=== PATIENT | female | born 1960 | race Caucasian/White ===

== ENCOUNTER → 2017-01-03 | Outpatient (CLI) | payer MEDICAID ==
[~2017-01-03] MED LIST: ASPIRIN 81MG TA81 MG PO; GABAPENTIN100 M1 PO; KEFLEX 500MG.500 MG PO; LORTAB 500 MG-71 TAB PO; SULFAMETHOXAZOL1 TA6 PO
--- NOTE | 2017-01-10 09:32 | RADIOLOGY REPORT PS360 ---
US ABD(COMPLETE-MULTI ORGANS HISTORY: RUQ PAIN,HEPATITIS,C,THROMBOCYTOPENIA Patient Age: 56 years: Female Ordering Physician: ZOHRA KIRBY TECHNIQUE: Ultrasound abdomen complete COMPARISON :No prior studies FINDINGS Pancreas. Head body and tail Unremarkable. Liver. Upper normal echogenicity slightly coarse pattern could reflect above history. No focal lesions or mass is evident. Portal vein normal diameter and flow direction. Common duct normal diameter 3 mm at hilum of liver. No intrahepatic biliary ductal dilatation Gallbladder. Probably small stones in the fundus of gallbladder. Borderline to mild wall thickening.-Generous size gallbladder 7.5 cm length with wall measuring up to 4.5 mm in some areas Aorta normal caliber. No aneurysm. Spleen appears normal size measuring up to 10 seem in length maximally. . Kidneys appear normal bilateral. No hydronephrosis nor mass Left kidney 11.3 cm in length X 5 cm. Right kidney 10 cm in length x5.8 x 3.5 cm. IMPRESSION: Gallbladder. Probable/suspect small stones towards fundus of gallbladder. Borderline to mild gallbladder wall thickening Liver. Slightly coarse architecture, upper normal echogenicity. Mild fatty changes. No focal lesions Kidneys & pancreas & spleen unremarkable.
== END ==
LOC: RAD 08:20
DX: R10.11 Right upper quadrant pain (principal); D69.6 Thrombocytopenia, unspecified; B19.20 Unspecified viral hepatitis C without hepatic coma

== ENCOUNTER 2017-01-05 10:12 | Day surgery (SDC) | payer MEDICAID ==
--- NOTE | 2017-01-05 12:06 | Operative Note ---
Upper GI Endoscopy Procedure date: 01/05/17 Date of : 60 Procedure:Upper GI Endoscopy with dilation and biopsy Indications: dysphagia Performing Provider: Alphonso Floyd Referring Provider: Ben Sanabria Sedation: Midazolam 11mg, fentanyl 200 mg Procedure: Prior to the procedure, a history and physical exam was performed, and patients medications and allergies were reviewed. The risks and benefits of the procedure and the sedation options and risks were discussed with the patient. All questions were answered and informed consent was obtained. The patient was brought to the procedure room. Patient identification and proposed procedure were verified by the physician and the nurse. The patient was placed in a left lateral decubitus position and the scope was passed under direct vision. Throughout the procedure, the patient's blood pressure, pulse, and oxygen saturations were monitored continuously. The endoscope was introduced through the mouth, and advanced to the second part of duodenum. A 20 Fr TTS dilator was inserted and inflated for 60sec. The upper GI endoscopy was accomplished without difficulty. The patient tolerated the procedure well. Findings: 1) Hitala hernia 4cm 2) Schatzki's ring - mild non-obstructing - dialted to 20Fr w/ TTS dilator 3) Tongues of erythematous mucosal at GEJ for 2 cm - biopsied to r/o Floyd's 4) Apearance of circumferential rings in mid-esophagus - biiosied to r/o EoE. 5) Remainder WNL. Immediate complications: None EBL (ml): 5 Impression: 1) Hiatal hernie - large - may be cause of dysphagia 2) mild Schatzki's ring at GEJ - dilated 3) Tongues of erythematous mucosal at GEJ for 2 cm - biopsied to r/o Floyd's 4) Apearance of circumferential rings in mid-esophagus - biiosied to r/o EoE. Recommendations: 1) Cont PPI 2) f/u pathology at 1202
[2017-01-05 14:22] VITALS: BP 115/66
== END 2017-01-05 14:10 | disposition home or self-care (01) ==
LOC: SDC 10:12
PROVIDERS: Internal Medicine Gastroenterology
PROC: 0D758ZZ Dilation of Esophagus, Via Natural or Artificial Opening Endoscopic (ICD-10-PCS; 2017-01-05)
PROC: 0DB58ZX Excision of Esophagus, Via Natural or Artificial Opening Endoscopic, Diagnostic (ICD-10-PCS; principal; 2017-01-05 12:00)
DX: K22.2 Esophageal obstruction (principal); K44.9 Diaphragmatic hernia without obstruction or gangrene
CPT/HCPCS: C1726

== ENCOUNTER → 2017-04-29 | Outpatient (CLI) | payer MEDICAID ==
--- NOTE | 2017-05-02 09:38 | RADIOLOGY REPORT PS360 ---
DIG MAMM-SCREEN [facility] W/CAD ORDERING PHYSICIAN : SINTIA HODGES PATIENT AGE: 56 years GENDER: Female COMPARISON: March 2000 05 January 2015. Outside Film screen mammogram arch July 2012 HISTORY:56-year-old with no hormones. No new complaints. Noncontributory family history TECHNIQUE: Std CC & MLO images were obtained. R2 CAD reviewed. FINDINGS: Moderate breast density with no dominant mass nor suspicious calcifications either breast. RIGHT BREAST: No areas of concern LEFT BREAST:. No new areas of concern The ridge of tissue at the deep left breast on cc view is similar to previous studies IMPRESSION: Stable bilateral mammogram Follow-up one year recommended BI-RADS CATEGORY: 1_Negative RECOMMENDED FOLLOWUP: 12M 12 MONTH FOLLOW-UP (A letter has been sent to the patient regarding results of the study.)
== END ==
LOC: RAD 04-12 09:30
DX: Z12.31 Encounter for screening mammogram for malignant neoplasm of breast (principal)
CPT/HCPCS: G0202